=== PATIENT | female | born 1965 | race Caucasian/White ===

== ENCOUNTER 2018-09-15 09:31 | Observation (INO) | payer OTHER ==
[2018-09-15] MEDS ORDERED: NITROGLYCERIN (SL) 0.4 MG TAB SL (10:00)
[2018-09-15 10:25] LABS: ADD MAN DIFF? NO
[2018-09-15 10:36] LABS: WHITE BLOOD COUNT 4.2 10^3/ul (4.8-10.8)
[2018-09-15 10:36] LABS: BASOPHILS % 0.5 % (0.0-2.0); HEMOGLOBIN 13.8 g/dl (12.0-16.0); LYMPHOCYTES # 1.6 10^3/ul (0.8-2.9); LYMPHOCYTES % 39.1 % (15.0-51.0); MEAN CORPUSCULAR HGB CONC 33.7 g/dl (32.0-37.0); MEAN CORPUSCULAR VOLUME 89.1 fl (82.0-101.0); MEAN PLATELET VOLUME 9.4 fl (7.4-10.4); MONOCYTE # 0.3 10^3/ul (0.3-0.9); MONOCYTES % 6.2 % (0.0-11.0); NEUTROPHIL # 2.2 10^3/ul (1.6-7.5); PLATELET COUNT 239 10^3/UL (140-415); RED CELL DISTRIBUTION WIDTH 12.5 % (11.5-14.5)
[2018-09-15 10:49] LABS: ALANINE AMINOTRANSFERASE 18 IU/L (13-69); ALBUMIN 4.5 g/dl (3.3-4.9); ALBUMIN/GLOBULIN RATIO 1.32; ALKALINE PHOSPHATASE 98 IU/L (42-121); ANION GAP 8 (5-13); ASPARTATE AMINO TRANSFERASE 28 IU/L (15-46); BILIRUBIN,INDIRECT 0.6 mg/dl (0-1.1); BILIRUBIN,TOTAL 0.6 mg/dl (0.2-1.3); BLOOD UREA NITROGEN 13 mg/dl (7-20); CALCIUM 10.2 mg/dl (8.4-10.2); CARBON DIOXIDE 28 mmol/L (21-31); CHLORIDE 102 mmol/L (97-110); CREATINE KINASE 74 IU/L (23-200); CREATININE 0.74 mg/dl (0.44-1.00); Estimated GFR > 60 mL/min (>60); GLUCOSE 104 mg/dl (70-220); POTASSIUM 3.8 mmol/L (3.5-5.1); SODIUM 138 mmol/L (135-144); TOTAL PROTEIN 7.9 g/dl (6.1-8.1)
[2018-09-15 10:52] LABS: INR 0.89; PROTIME 12.2 Sec (11.9-14.9)
[2018-09-15 10:53] LABS: PARTIAL THROMBOPLASTIN TIME 30.4 Sec (23.0-35.0)
[2018-09-15 11:01] LABS: B-TYPE NATRIURETIC PEPTIDE 22 PG/ML (0-125); CK INDEX 1.1; TROPONIN-I < 0.012 ng/ml (0.000-0.120)
[2018-09-15] MEDS: ONDANSETRON 4 MG INJ IV (12:02)
[2018-09-15] MEDS: ASPIRIN 325 MG TAB PO (12:02)
[2018-09-15] MEDS ORDERED: HYDROCODONE/APAP (5/325) TAB PO (14:00)
[2018-09-15] MEDS ORDERED: NACL 0.9% 3 ML SYG IV (14:00)
[2018-09-15 14:48] LABS: TROPONIN-I < 0.012 ng/ml (0.000-0.120)
[2018-09-15 20:27] LABS: TROPONIN-I < 0.012 ng/ml (0.000-0.120)
== END 2018-09-16 15:49 | disposition home or self-care (01) ==
LOC: E/R 09:31 → TEL 11:33
DX: R07.9 Chest pain, unspecified (principal); F32.9 Major depressive disorder, single episode, unspecified; I10 Essential (primary) hypertension; E03.9 Hypothyroidism, unspecified; E66.01 Morbid (severe) obesity due to excess calories; Z68.30 Body mass index [BMI] 30.0-30.9, adult
CPT/HCPCS: 36415; 71045; 80053; 82550; 82553; 83880; 84484; 85025; 85610; 85730; 93005; 93306; 99285-25; G0378